=== PATIENT | male | born 1995 | race Caucasian/White ===

== ENCOUNTER 2019-12-05 15:17 | Outpatient (REF) | payer MEDICAID, SELFPAY ==
[2019-12-07 10:17] LABS: Syphilis Serology (RPR) Negative (Negative); Varicella IgG Antibody Positive (See Note)
[2019-12-07 11:00] LABS: HBs Antibody, Quant 4.1 mIU/mL (See Note); Hepatitis B Surface Ab Negative (See Note)
[2019-12-07 11:44] LABS: HIV-1/2 Ag & Ab Screen Negative (Negative)
[2019-12-07 12:11] LABS: Hepatitis C Ab w Rflx HCV PCR Negative (Negative)
[2019-12-07 14:42] LABS: Chlamydia Result Negative (Negative)
[2019-12-07 22:43] LABS: C.trach, Misc, Amplified RNA Negative (Negative); N.gonorr, Misc, Amplified RNA Negative (Negative); SOURCE: THROAT
[2019-12-08 08:44] LABS: GC Result Negative (Negative)
== END 2019-12-05 15:37 ==
LOC: NCHCN 15:17
PROVIDERS: PCP Nurse Practitioner Family; Visit Provider Nurse Practitioner Family
DX: Z02.89 Encounter for other administrative examinations (principal); Z11.4 Encounter for screening for human immunodeficiency virus [HIV]; Z11.59 Encounter for screening for other viral diseases; Z11.3 Encounter for screening for infections with a predominantly sexual mode of transmission
CPT/HCPCS: 86706; 86787; 86803; 87389; 87491; 87591; 86592

== ENCOUNTER 2021-05-23 14:51 | Outpatient (REF) | payer MEDICAID, SELFPAY ==
[2021-05-25 10:15] LABS: HIV-1/2 Ag & Ab Screen Negative (Negative)
[2021-05-27 01:57] LABS: Chlamydia amplified RNA Negative (Negative); N gonorrhoeae amplified RNA Negative (Negative); Source THROAT
[2021-05-27 15:23] LABS: Chlamydia Result Negative (Negative); GC Result Negative (Negative)
== END 2021-05-23 14:52 | disposition home or self-care (01) ==
LOC: NCHCN 14:51
PROVIDERS: PCP Nurse Practitioner Family; Visit Provider Registered Nurse
DX: Z11.3 Encounter for screening for infections with a predominantly sexual mode of transmission (principal); Z11.4 Encounter for screening for human immunodeficiency virus [HIV]
CPT/HCPCS: 87389; 87491; 87591